=== PATIENT | female | born 1980 | race Caucasian/White ===

== ENCOUNTER → 2017-08-22 | Outpatient (CLI) | payer OTHER ==
[~2017-08-22] MED LIST: IBUP-1222 PO
== END ==
LOC: RAD 14:50
PROVIDERS: ATTEND Family Medicine
DX: N83.201 Unspecified ovarian cyst, right side (principal); R19.7 Diarrhea, unspecified; R11.0 Nausea
CPT/HCPCS: 76857

== ENCOUNTER 2019-02-10 17:35 | Emergency (ER) | payer OTHER ==
[~2019-02-10] VITALS: Ht 157.5 cm; Wt 48.6 kg
[2019-02-10 17:48] VITALS: BP 115/68
--- NOTE | 2019-02-10 20:06 | NUR ---
PT CALLED X 3 FROM [phone] TO 1999 NO ANSWER
== END 2019-02-10 20:11 | disposition left against medical advice (07) ==
LOC: ED 20:05
DX: R07.89 Other chest pain (principal); R06.02 Shortness of breath; R00.0 Tachycardia, unspecified; Z53.21 Procedure and treatment not carried out due to patient leaving prior to being seen by health care provider
CPT/HCPCS: 93005

== ENCOUNTER 2019-02-13 18:13 | Emergency (ER) | payer MEDICAID ==
[~2019-02-13] VITALS: Ht 157.5 cm; Wt 51.8 kg
--- NOTE | 2019-02-13 18:53 | NUR ---
REPORT TO AGATA HANLEY
--- NOTE | 2019-02-13 18:55 | NUR ---
REPORT FROM HENRI HANLEY VSS ON MEDICAL ASST PROVIDER TO BEDSIDE TO OBTAIN BASIC LABS/ECG AND FORMULATE DISPO
[2019-02-13 19:46] LABS: BASOPHILS # (AUTO) 0.07 x10^3/uL (0-0.1); BASOPHILS % (AUTO) 1 % (0-1); EOSINOPHILS # (AUTO) 0.06 x10^3/uL (0-0.4); EOSINOPHILS % (AUTO) 1 % (1-7); LYMPHOCYTES # (AUTO) 1.08 x10^3/uL (1-3.4); LYMPHOCYTES % (AUTO) 13 % (22-44); MD NO; MEAN CORPUSCULAR HEMOGLOBIN 31.2 pg (27.0-34.8); MEAN CORPUSCULAR HGB CONC 33.4 g/dL (32.4-35.8); MEAN CORPUSCULAR VOLUME 93.4 fL (80-100); MEAN PLATELET VOLUME 8.1 fL (7.4-10.4); MONOCYTES # (AUTO) 0.41 x10^3/uL (0.2-0.8); MONOCYTES % (AUTO) 5 % (2-9); NEUTROPHILS # (AUTO) 6.73 x10^3/uL (1.8-6.8); NEUTROPHILS % (AUTO) 81 % (42-75); PLATELET COUNT 226 x10^3/uL (130-400); RED BLOOD COUNT 4.51 x10^6/uL (3.82-5.3); RED CELL DISTRIBUTION WIDTH 12.5 % (9.6-15.2)
[2019-02-13 19:57] LABS: ANION GAP 5 mmol/L (5-15); CALCIUM 9.1 mg/dL (8.5-10.1); CHLORIDE 110 mmol/L (98-107); CREATININE 0.89 mg/dL (0.55-1.02)
[2019-02-13 20:07] LABS: FREE T4 (FREE THYROXINE) 0.96 ng/dL (0.76-1.46)
[2019-02-13 20:26] VITALS: BP 105/77
== END 2019-02-13 21:09 | disposition home or self-care (01) ==
LOC: ED 19:01
DX: R06.00 Dyspnea, unspecified (principal)
CPT/HCPCS: 36415; 71046; 80048; 82040; 84439; 84443; 85025; 93005; 99284